=== PATIENT | male | born 1995 | race Caucasian/White ===

== ENCOUNTER 2022-06-14 09:13 | Emergency (ER) | payer SELFPAY ==
[2022-06-14 09:33] VITALS: BP 101/66; PULSE 101; RESP 18; TEMP 98; BMI 30.5
[2022-06-14] MEDS ORDERED: CYCLOBENZAPRINE HCL 10 MG TABLET (FP) PO ONE (10:12)
[2022-06-14] MEDS ORDERED: ACETAMINOPHEN 500 MG TABLET (FP) PO ONE (10:12)
[2022-06-14] MEDS ORDERED: LIDOCAINE 5% TOPICAL PATCH TP ONE (10:12)
[2022-06-14] MEDS ORDERED: KETOROLAC TROMETHAMINE 30 MG/1 ML VIAL IM ONE (10:12)
[2022-06-14] MEDS ORDERED: LIDOCAINE 5% TOPICAL PATCH ONE (10:17)
[2022-06-14] MEDS ORDERED: CYCLOBENZAPRINE HCL 10 MG TABLET (FP) ONE (10:17)
[2022-06-14] MEDS ORDERED: KETOROLAC TROMETHAMINE 30 MG/1 ML VIAL ONE (10:18)
[2022-06-14] MEDS ORDERED: ACETAMINOPHEN 500 MG TABLET (FP) ONE (10:18)
[2022-06-14] MEDS ORDERED: LIDOCAINE PATCH REMOVAL MC SCH (22:00)
== END 2022-06-14 11:20 | disposition home or self-care (01) ==
LOC: JERFT 09:13
PROC: 3E0233Z Introduction of Anti-inflammatory into Muscle, Percutaneous Approach (ICD-10-PCS; principal; 2022-06-14)
DX: S50.311A Abrasion of right elbow, initial encounter (principal); M25.551 Pain in right hip; W10.9XXA Fall (on) (from) unspecified stairs and steps, initial encounter
CPT/HCPCS: 99284-25